=== PATIENT | male | born 1990 | race Caucasian/White ===

== ENCOUNTER 2025-02-20 12:00 | Emergency (ER) | payer MEDICARE, SELFPAY ==
[2025-02-20 12:15] VITALS: BP 121/85
[2025-02-20 12:37] LABS: Hematocrit 39.7 % (39.0-52.0); Hemoglobin 13.9 g/dL (13.0-18.0); Mean Corp Hgb Conc. 35.0 g/dL (33.0-37.0); Mean Corpuscular Volume 86.5 fL (80.0-94.0); Nucleated Red Blood Cells % 0 % (-); Platelet Count 254 10^3/uL (130-400); Red Cell Dist. Width 12.1 % (11.5-14.5)
--- NOTE | 2025-02-20 12:43 | ED.GENMED ---
History of Present Illness
General
Chief Complaint: Abnormal Lab Value
Course
Orders/Labs/Results
Orders:
Orders
02/20/25 12:28
CMP [Comprehensive Metabolic Panel] Urgent
Complete Blood Count/With Diff Urgent
Abnormal Lab Results
02/20/25
12:28
RBC 4.59 L 10^6/uL
(4.70-6.10)
Abs Immat Gran (auto) 0.3 H 10^3/uL
(0-0.05)
Absolute Lymphs (auto) 3.7 H 10^3/uL
(1.2-3.4)
Absolute Monos (auto) 1.1 H 10^3/uL
(0.1-0.6)
Immature Gran % 3.4 H %
(0-0.5)
Monocytes % 10.6 H %
(1.7-9.3)
02/20/25 12:28
Vital Signs
Initial and Last Documented VS:
Initial Vital Signs
Temp Pulse Resp BP Pulse Ox
97.8 F 105 20 121/85 98
02/20/25 12:15 02/20/25 12:15 02/20/25 12:15 02/20/25 12:15 02/20/25 12:15
Last Documented Vital Signs
Temp Pulse Resp BP Pulse Ox
97.8 F 105 20 121/85 98
02/20/25 12:15 02/20/25 12:15 02/20/25 12:15 02/20/25 12:15 02/20/25 12:15
*Pulse Oximetry
SaO2: 98
Oxygen Mode of Delivery: Room air
ED Attending Note
-
Portions of this chart may have been created with voice recognition software.� Occasional wrong word or��sound alike� substitutions may have occurred due to the inherent limitations of voice recognition software.
Discharge Plan
Departure
Referrals:
Danay Ovalle CRNP [Family Provider]
Interventions
Interventions:
*Risk Screen - Suicide Last Done: 02/20/25 12:11
*General Assessment Last Done: 02/20/25 12:11
*Neglect/Abuse Screening Last Done: 02/20/25 12:11
*ED- Fall Risk Assessment Last Done: 02/20/25 12:11
*ED COVID-19 Vaccine History Last Done: 02/20/25 12:11
Discharge Date and Time
Print Language: MALAY
[2025-02-20 13:10] LABS: ALT (SGPT) 58 U/L (0-50); AST (SGOT) 39 U/L (17-59); Albumin 4.2 g/dl (3.5-5.0); Alkaline Phosphatase 56 U/L (38-126); Blood Urea Nitrogen 8 mg/dl (9-20); Calcium 9.4 mg/dl (8.4-10.2); Carbon Dioxide 26 mmol/L (22-30); Chloride 99 mmol/L (98-107); Glucose 95 mg/dl (70-99); Potassium 4.2 mmol/L (3.5-5.1); Sodium 130 mmol/L (135-145); Total Protein 6.7 g/dl (6.3-8.2); eGFR > 60.00
--- NOTE | 2025-02-20 14:05 | ED.GENMED ---
History of Present Illness
General
Chief Complaint: Abnormal Lab Value
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
Exam Limitations: non verbal-adult
Time Seen by Provider: 02/20/25 13:57
History of Present Illness
History of Present Illness:
34yoM with a history of autism, development delays, intermittent explosive disorder presenting with his caregivers for evaluation of abnormal outpatient labs. Patient is a resident at a intermediate and he arrives with [facility] staff members. He
had blood work last week and followed up with his psychiatrist today. His sodium was 126 and he was sent to the ED for evaluation. He receives blood work every 6 months and caregivers deny any history of hyponatremia. They deny any change in his
mental status. Oral intake is reported to be normal. He has chronic diarrhea that is no worse than normal. No vomiting. No recent medication changes.
Phy Exam
Physical Exam
Physical Exam:
Well appearing, eating apple slices during exam
General Physical Exam
General Presentation: well appearing and no apparent distress
General Skin: warm and dry
General Habitus: normal
General Mental: alert
General Hydration: appears well hydrated
ENT Exam
ENT Exam: normocephalic
Cardiovascular Exam
Cardiovascular Exam: regular rate/rhythm and no murmur
Pulmonary Exam
Pulmonary Exam: lungs clear, no respiratory distress, no rales, no crackles, no rhonchi and no wheezing
Neurological Exam
Neurological Exam: alert
Skin Exam
Skin Exam: normal color and warm/dry
Course
Orders/Labs/Results
Orders:
Orders
02/20/25 12:28
CMP [Comprehensive Metabolic Panel] Urgent
Complete Blood Count/With Diff Urgent
Abnormal Lab Results
02/20/25
12:28
RBC 4.59 L 10^6/uL
(4.70-6.10)
Abs Immat Gran (auto) 0.3 H 10^3/uL
(0-0.05)
Absolute Lymphs (auto) 3.7 H 10^3/uL
(1.2-3.4)
Absolute Monos (auto) 1.1 H 10^3/uL
(0.1-0.6)
Immature Gran % 3.4 H %
(0-0.5)
Monocytes % 10.6 H %
(1.7-9.3)
Sodium 130 L mmol/L
(135-145)
BUN 8 L mg/dl
(9-20)
Creatinine 0.6 L mg/dL
(0.7-1.3)
ALT 58 H U/L
(0-50)
02/20/25 12:28
02/20/25 12:28
Vital Signs
Initial and Last Documented VS:
Initial Vital Signs
Temp Pulse Resp BP Pulse Ox
97.8 F 105 20 121/85 98
02/20/25 12:15 02/20/25 12:15 02/20/25 12:15 02/20/25 12:15 02/20/25 12:15
Last Documented Vital Signs
Temp Pulse Resp BP Pulse Ox
97.8 F 94 20 120/87 98
02/20/25 12:15 02/20/25 14:15 02/20/25 14:15 02/20/25 14:15 02/20/25 14:15
MDM/Problems Addressed
Differential Diagnosis Includes:
34yoM here for a sodium of 126 on routine outpatient labs last week. Hx of autism in a intermediate. Currently on multiple psych meds including Depakote and Risperdal. Caregivers deny any change in mental status. VSS. He is well appearing and eat
apple slices on exam. Differential diagnosis includes: dehydration, SIADH, medication side effect
Repeat labs obtained in triage. Sodium improved to 130. No indication for further workup in emergency department. His psychiatrist already ordered repeat blood work in 1 week for close monitoring. Advised f/u with his psychiatrist for possible
medication adjustments as it may be his psych meds causing the hyponatremia. Advised return to the ED with any change in mental status or seizures. Patient discharged in stable condition with his caregivers.
*Pulse Oximetry
SaO2: 98
Oxygen Mode of Delivery: Room air
Patient hypoxic: no (98%)
*Critical Care Note
Total Time (30-74mins, 75-104mins- exclusive of procedures): Not Applicable
ED Attending Note
-
Portions of this chart may have been created with voice recognition software.� Occasional wrong word or��sound alike� substitutions may have occurred due to the inherent limitations of voice recognition software.
Discharge Plan
Departure
Patient Disposition: Home (Routine Discharge)
Date of Disposition: 02/20/25
Time of Disposition: 14:11
Patient with high blood pressure during this ER visit?: No
Discharge Problem:
Hyponatremia
Instructions: Hyponatremia
Referrals:
Danay Ovalle CRNP [Family Provider]
Stand Alone Forms: Return to Work
Activity Restrictions/Additional Instructions:
Have repeat blood work in 1 week to monitor sodium levels. Please follow-up with your psychiatrist to discuss possible medication adjustments.
Return to the ER with any change in mental status including fatigue, confusion, or seizures.
Interventions
Interventions:
*Risk Screen - Suicide Last Done: 02/20/25 12:11
*General Assessment Last Done: 02/20/25 12:11
*Neglect/Abuse Screening Last Done: 02/20/25 12:11
*ED- Fall Risk Assessment Last Done: 02/20/25 12:11
*ED COVID-19 Vaccine History Last Done: 02/20/25 12:11
*Nursing Disposition Last Done: 02/20/25 14:26
Discharge Date and Time
Discharge Date/Time: 02/20/25 14:27
Print Language: [id number]
[2025-02-20 14:15] VITALS: BP 120/87
== END 2025-02-20 14:27 | disposition home or self-care (01) ==
LOC: EMR 12:00
PROVIDERS: Emergency Medicine; EMERGENCY PHYSICIAN Student in an Organized Health Care Education/Training Program; FAMILY PHYSICIAN Nurse Practitioner Family
DX: R79.89 Other specified abnormal findings of blood chemistry (principal); E87.1 Hypo-osmolality and hyponatremia; F84.0 Autistic disorder; F63.81 Intermittent explosive disorder; R19.7 Diarrhea, unspecified; Z88.1 Allergy status to other antibiotic agents; Z88.8 Allergy status to other drugs, medicaments and biological substances
CPT/HCPCS: 99283; 80053; 85025